=== PATIENT | male | born 1955 | race Caucasian/White ===

== ENCOUNTER → 2023-02-11 12:59 | Outpatient (CLI) | payer MEDICARE, OTHER, SELFPAY ==
--- NOTE | 2023-02-11 | DI.CT.S_ITS ---
PROCEDURE: CT LUNG LOW DOSE SCREENING INDICATIONS: Personal history of nicotine dependence TECHNIQUE: Noncontrast 2.0-2.5 mm thick sections acquired from the pulmonary apices to the posterior costophrenic angles. 7 mm thick axial MIP, and 5 mm coronal and sagittal reformats were then acquired. For radiation dose reduction, the following was used: automated exposure control, adjustment of mA and/or kV according to patient size. COMPARISON: None. FINDINGS: Image quality: Diagnostic, given the low radiation dose technique. Lungs and pleura: Moderate to severe pulmonary emphysema is present predominantly within the bilateral lower lobes. Mild atelectasis is present in the dependent lung bases. No suspicious pulmonary nodules or acute airspace opacities. No pulmonary mass lesions. Mediastinum: Heart size is normal. No pericardial effusion. No mediastinal adenopathy by size criteria. Thoracic aorta and central pulmonary arteries are normal in size. Scattered atheromatous calcifications are present within the aortic arch. Esophagus is normal in caliber. No hiatal hernia. Bones and chest wall: No suspicious bony lesions. Superior endplate compression deformities are present at T4 and T5. Vertebral body height is otherwise preserved. No axillary or supraclavicular adenopathy by size criteria. The thyroid is unremarkable. Upper Abdomen: Visualized upper abdomen solid organs and bowel loops appear normal in the absence of contrast. IMPRESSION: 1. No suspicious pulmonary nodules or acute airspace opacities. 2. Moderate to severe emphysematous changes within the lower lobes bilaterally. 3. Compression deformities at T4 and T5, the acuity of which are unknown without prior comparison studies. LUNG-RADS 1; continued annual screening, if eligible. Clinically Significant Non-pulmonary Findings: None. Dictated by: Judith Travis M.D. on 02/11/2023 at 16:16 Approved by: Judith Travis M.D. on 02/11/2023 at 16:19
== END ==
PROVIDERS: PCP Family Medicine; Referring Provider Family Medicine; Visit Provider Family Medicine
DX: Z87.891 Personal history of nicotine dependence (principal); Z12.2 Encounter for screening for malignant neoplasm of respiratory organs; M43.8X4 Other specified deforming dorsopathies, thoracic region
CPT/HCPCS: 71271